=== PATIENT | male | born 1960 | race African-American/Black ===

== ENCOUNTER 2016-07-10 05:23 | Inpatient (IN) | payer OTHER ==
[2016-07-09 09:52] VITALS: Ht 182.9 cm; Wt 160.0 kg
[~2016-07-10] VITALS: Ht 182.9 cm; Wt 160.0 kg
[2016-07-10] VITALS (15 sets, daily range): BP systolic 119–176; BP diastolic 61–87; PULSE 76–100; RESP 10–20
[2016-07-10] MEDS ORDERED: SURGIFOAM POWDER 1 GM KIT ONE ×2 (06:47→10:34)
[2016-07-10] MEDS ORDERED: BUPIVACAINE 0.25% (MPF) 30 ML INJ ONE (06:47)
[2016-07-10] MEDS ORDERED: GELATIN SIZE 100 SPONGE ONE (06:47)
[2016-07-10] MEDS ORDERED: BUPIVACAINE 0.25%/EPI (SDV) 30 ML INJ ONE (06:47)
[2016-07-10] MEDS ORDERED: THROMBIN 5000 UNIT VIAL ONE (06:48)
[2016-07-10] MEDS ORDERED: HEPARIN 1000 UNITS/ML 10 ML INJ ONE (06:48)
[2016-07-10] MEDS ORDERED: CA CHLORIDE 10% 10 ML SYRINGE ONE (06:49)
--- NOTE | 2016-07-10 06:53 | HPN ---
Date/Time of Note Date/Time of Note DATE: 07/10/16 TIME: 06:52 Interval H&P Admission Note Pt. seen H&P reviewed: No system changes TD LORENZ MD Jul 10, 2016 06:52
[2016-07-10] MEDS ORDERED: HYDROmorphONE 1 MG/ML SYG IV PRN (07:00)
[2016-07-10] MEDS: CEFAZOLIN 1 GM/50 ML (PMX) 50 ML IVPB SCH ×3 (07:00→23:17)
[2016-07-10] MEDS ORDERED: DIPHENHYDRAMINE 50 MG INJ IV PRN ×2 (07:00→08:30)
[2016-07-10] MEDS ORDERED: BISACODYL 10 MG SUPP PR PRN (07:00)
[2016-07-10] MEDS ORDERED: LACTATED RINGER'S 1,000 ML IV* SCH (07:00)
[2016-07-10] MEDS ORDERED: CYCLOBENZAPRINE 10 MG TAB PO PRN (07:00)
[2016-07-10] MEDS ORDERED: GLYCOPYRROLATE 1 MG INJ ONE (07:00)
[2016-07-10] MEDS ORDERED: CEFAZOLIN 2 GM/50 ML (PMX) 50 ML IVPB ONE (07:00)
[2016-07-10] MEDS ORDERED: CEFAZOLIN 1 GM INJ ONE ×2 (07:00→07:07)
[2016-07-10] MEDS ORDERED: CEPASTAT LOZENGE MT PRN (07:00)
[2016-07-10] MEDS ORDERED: ALBUMIN HUMAN 5% 250 ML INJ ONE (07:00)
[2016-07-10] MEDS ORDERED: AL HYDROX/MG HYDROX/SIMETH 30 ML CUP PO PRN (07:00)
[2016-07-10] MEDS ORDERED: HYDROCODONE/APAP (10/325) TAB PO PRN (07:00)
[2016-07-10] MEDS ORDERED: ACETAMINOPHEN 325 MG TAB PO PRN (07:00)
[2016-07-10] MEDS ORDERED: DIPHENHYDRAMINE 25 MG CAP PO PRN (07:00)
[2016-07-10] MEDS ORDERED: ONDANSETRON 4 MG INJ IV PRN ×2 (07:00→08:30)
[2016-07-10] MEDS ORDERED: NALOXONE (0.4 MG/ML) INJ IV PRN (07:00)
[2016-07-10] MEDS ORDERED: NEOSTIGMINE 3 MG/3 ML SYRINGE ONE (07:03)
[2016-07-10] MEDS ORDERED: PROPOFOL 20 ML ONE (07:03)
[2016-07-10] MEDS ORDERED: ROCURONIUM 50 MG INJ ONE (07:03)
[2016-07-10] MEDS ORDERED: SUCCINYLCHOLINE CHLORIDE 100 MG/5 ML SYG IV ONE (07:03)
[2016-07-10] MEDS ORDERED: LIDOCAINE 100 MG SYRINGE ONE (07:04)
[2016-07-10] MEDS ORDERED: ONDANSETRON 4 MG INJ ONE (07:04)
[2016-07-10] MEDS ORDERED: MIDAZOLAM 1 MG/ML 2 ML INJ ONE (07:04)
[2016-07-10] MEDS ORDERED: DEXAMETHASONE 4 MG/ML 1 ML INJ ONE (07:04)
[2016-07-10] MEDS ORDERED: THROMBIN 5000 UNIT VIAL TOP ONE ×3 (07:49→11:06)
[2016-07-10] MEDS ORDERED: BUPIVACAINE 0.25%/EPI (SDV) 30 ML INJ INJ ONE (07:49)
[2016-07-10] MEDS ORDERED: CEFAZOLIN 1 GM INJ ZFS ONE (07:49)
[2016-07-10] MEDS ORDERED: LABETALOL HCL 20MG INJ ONE (08:17)
[2016-07-10] MEDS ORDERED: EPHEDrine SULFATE 50 MG/5 ML SYG IV PRN (08:30)
[2016-07-10] MEDS ORDERED: FENTAnyl 50 MCG/ML VIAL IV PRN ×3 (08:30)
[2016-07-10] MEDS ORDERED: TRIMETHOBENZAMIDE 100 MG/ML VIAL IM PRN (08:30)
[2016-07-10] MEDS ORDERED: LABETALOL HCL 20MG INJ IV PRN (08:30)
[2016-07-10] MEDS ORDERED: hydrALAzine 20 MG INJ IV PRN (08:30)
[2016-07-10] MEDS ORDERED: MIDAZOLAM 1 MG/ML 2 ML INJ IV PRN (08:30)
[2016-07-10] MEDS ORDERED: MEPERIDINE 25 MG INJ IV PRN (08:30)
[2016-07-10] MEDS ORDERED: HYDROmorphONE (0.2 MG/ML) 10ML SYG IV PRN ×3 (08:30)
[2016-07-10] MEDS: DOCUSATE SODIUM 100 MG CAP PO SCH ×2 (09:00→20:50)
--- NOTE | 2016-07-10 09:23 | RADRPT ---
PROCEDURE: XR Lumbar Spine one view. CLINICAL INDICATION: Low back pain. Intraoperative. TECHNIQUE: Prone portable cross-table lateral. COMPARISON: No prior studies are available for comparison. FINDINGS: Posterior needle markers are present overlying the lumbar spine superiorly and inferiorly. IMPRESSION: 1. Intraoperative imaging as described above. RPTAT: QQ .Riki Camargo MD, MD Date Time Electronically viewed and signed by .Riki Camargo MD, on 07/10/2016 09:23 .R/
--- NOTE | 2016-07-10 09:24 | RADRPT ---
PROCEDURE: XR Lumbar Spine one view. CLINICAL INDICATION: Low back pain. Intraoperative. TECHNIQUE: Prone portable cross-table lateral. COMPARISON: Prior study done earlier the same day. FINDINGS: For the purposes of this report, the last apparent true disc level is considered to be L5-S1. Based on this, the posterior surgical instruments are present overlying the lower L2, mid L3, and L4, and mid L5 levels. IMPRESSION: 1. Intraoperative imaging as described above. RPTAT: QQ .Riki Camargo MD, Date Time Electronically viewed and signed by .Riki Camargo MD, on 07/10/2016 09:24 .R/
[2016-07-10] MEDS ORDERED: FENTAnyl 50 MCG/ML VIAL ONE (11:22)
[2016-07-10] MEDS ORDERED: BUPIVACAINE 0.25% (MPF) 10 ML 10 ML VIAL ONE (11:22)
[2016-07-10] MEDS: HYDROmorphONE 0.2 MG/ML PCA IV SCH (13:16)
--- NOTE | 2016-07-10 13:25 | OPR ---
DATE OF OPERATION: 07/10/2016 PREOPERATIVE DIAGNOSES: 1. L2-3, L3-4, L4-5, L5-S1 stenosis. 2. Right paracentral protrusion at L4-5 adding to the stenosis. 3. Morbid obesity (BMI 48). POSTOPERATIVE DIAGNOSES: 1. L2-3, L3-4, L4-5, L5-S1 stenosis. 2. Right paracentral protrusion at L4-5 adding to the stenosis. 3. Morbid obesity (BMI 48). OPERATION PERFORMED: 1. L2-3, L3-4, L4-5, and L5-S1 central decompressive laminectomy with decompression of L2, L3, L4, L5, and S1 nerve roots bilaterally. 2. Right L4-5 microdiskectomy, for further stenosis alleviation. 3. Use of operative microscope. 4. Lateral localizing film x2. 5. Intraoperative neuromonitoring (4 hours 15 minutes). 6. Epidural injection via catheter. 7. Application Prevena wound bilingual sales assistant. SURGEON: Renaldo Hernandez MD SUPERVISOR AGRICULTURAL EDUCATION: Jahaira Sykes PA-C NEED FOR GOLF CART ATTENDANT: During this spinal surgical procedure, my bilingual sales assistant was used to retract and protect the spinal nerves and dural sac. My bilingual sales assistant also employed the suction catheters to evacuate blood from the surgical field to improve visualization of the neural structures. The bilingual sales assistant was medically necessary to facilitate the completion of the surgery in a safe and expeditious manner. State of [place] regulations, as well as hospital bylaws, preclude the use of non-licensed health care personnel, such as operating room technicians, to perform these functions. FINDINGS: Neuromonitoring at the start of the case revealed right L3 down 50%, right L4 down 50%, right L5 down 50%, right S1 down 30%, left L2 down 40%, left L4 down 20%, left L5 down 30%. At the end of the case returned to normal. The patient had morbid obesity. Standard instrumentation was too short for this patient and instead instruments had to be used. At least an additional 1.5 hours were spent due to the patient's altered anatomy due to the obesity. ESTIMATED BLOOD LOSS: 600 mL with 300 returned via Cell[employer]. DRAINS: x2, Hemovac, Prevena. SPECIMENS: L2, L3, L4, L5 spinous processes with right L4-5 disk was sent to pathology. COMPLICATIONS OF PROCEDURES: None. ANESTHESIOLOGIST: Dr. Aiken TYPE OF ANESTHESIA: General. INDICATIONS FOR PROCEDURE: This is a 55-year-old gentleman with lumbosacral radiculopathy in the setting of stenosis. He had failed nonoperative measures; therefore, I recommended proceeding with the above-mentioned surgery. Preoperatively, we discussed the risks, benefits, and alternatives. He understood and wished to proceed. DESCRIPTION OF PROCEDURE IN DETAIL: The patient was identified in the preoperative holding area, given Ancef antibiotic, taken to the operating room where he was successfully placed under general anesthesia by Dr. Aiken. Neuromonitoring leads were placed, sequential compressive devices were applied. Martinez catheter was introduced. Neuromonitoring was utilized during the procedure for 4 hours and 15 minutes to include SSEP, MEP, and EMG. This was performed by [employer]. Start time was 8 a.m., closure time was 12:15 p.m. The patient was placed in the prone position over a Boris frame. All bony prominences were well padded. The back was then prepped and draped in the usual sterile fashion. Spinal needles were placed, and lateral localizing films obtained to confirm the correct levels. I next injected subcutaneous tissue with 0.25% Marcaine and epinephrine. Incision was then made from L2 to the sacrum. Incision was taken down to the dorsal fascia. Approximately 5 inches of adipose tissue was identified between the skin and the dorsal fascia. I then incised the dorsal fascia and subperiosteally dissected the L2, L3, L4 , L5 lamina. I then placed instruments around the spinous process and took a repeat lateral film to confirm the correct levels. The patient has morbid obesity due to his weight, standard retractors and instruments could not be used. Due to the altered field, an additional 1.5 of surgery time was spent. Once the retractors were in place, I performed a central decompressive laminectomy at L2-3, L3-4, L4-5, and L5-S1. I removed ligamentum flavum. I decompressed the lateral recess and visualized and decompressed the L2, L3, L4, L5, and S1 nerve roots bilaterally. At this point, all nerve signals returned to normal, but there was indentation of the dura on the right side at the L4-5 level. Partially due to adhesions, but I was concerned that there was a herniation here, and therefore microscope was brought in, annulotomy was made, and a right-sided limited microdiskectomy was performed at the L4-5 level to further decompress the stenosis. Once this was done, I irrigated the wound. Hemostasis was achieved with bipolar cautery, Surgifoam, and bone wax. A Valsalva maneuver was performed and there was no leak of CSF, and all nerve signals remained normal. Microscope was taken off the field. Epidural catheter was passed, and I injected 100 mcg of fentanyl mixed with 2 mL of Marcaine 0.25% preservative-free, and the catheter was removed. Anesthesiologist jaskaran peripheral blood which was spun using the Audigence device and took the platelet-poor plasma and mixed this with thrombin and injected this over the dura for hemostatic purposes. Periodically, the anesthesiologist lifted the patient's head to take pressure off the eyes. Next, retractors were removed, and I closed the deep fascia with #1 Stratafix suture. I closed subcutaneous tissue with a 2-0 Vicryl stitch. A 4-0 Monocryl closure was performed. 2-0 nylons were used to suture the drains and 1 drain was placed in the subfascial area superficial to the deep fascia. Due to the patient's excess adipose tissue, I elected to place the Prevena system to prevent further drainage. Once this was all done, The patient was awakened from anesthesia and taken to recovery in stable condition. Lap, sponge, and instrument counts were correct x2. There were no apparent complications during the surgery. The patient will be admitted to the orthopedic [facility] for routine postoperative care to include pain control, neurovascular checks, antibiotics, and physical therapy. Dictated By: RENALDO FARRELL/KISHAN Conf#: [id number] DID#: [id number] ISHA
[2016-07-10] MEDS: D5W-0.45 NACL + KCL 20 MEQ 1,000 ML IV SCH ×2 (15:55→16:53)
--- NOTE | 2016-07-10 17:54 | CONS ---
Date/Time of Note Date/Time of Note DATE: 07/10/16 TIME: 17:44 Assessment/Plan Assessment/Plan Problems: (1) Other specified aftercare following surgery Status: Acute Comment: Aftercare post op, pain management and physical therapy per Dr. Hernandez and his team. (2) Obesity Status: Chronic Qualifiers: (3) Hypertension Status: Chronic Comment: Will add [id number] mg daily. monitor and further adjust based on needs. Qualifiers: Qualified Code: I10 - Essential hypertension Consultation Date/Type/Reason Admit Date/Time Jul 10, 2016 at 05:23 Date of Consultation: Jul 10, 2016 Type of Consultation: Internal Medicine Reason for Consultation Medicine follow up Referring Provider: TD HERNANDEZ MD Hx of Present Illness Patient with back injury April 2015 after bending over and reaching to bead picker an item from the floor. Upon standing heard a pop with pain in low back radiating down leg and the inability to walk. Constitutional: no complaints Eyes: no complaints ENT: no complaints Respiratory: no complaints Cardiovascular: no complaints Gastrointestinal: no complaints Genitourinary: no complaints Musculoskeletal: back pain Neurologic: no complaints Endocrine: no complaints Lymphatic: no complaints Psychological: no complaints Immunologic: no complaints Past Medical History Medical History: hypertension (obesity), other Past Surgical History Past Surgical Hx: no surgical history Family History Significant Family History: cancer, other (obesity) Social History Alcohol Use: occasionally Smoking Status: Never smoker Drug Use: none Other Social History 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 Exam/Review of Systems Vital Signs Vitals Vital Signs Date Time Temp Pulse Resp B/P Pulse Ox O2 Delivery O2 Flow Rate FiO2 07/10/16 13:26 78 15 146/84 97 Nasal Cannula 2.0 07/10/16 12:51 97.5 Exam Constitutional: alert, obese, oriented, well developed Psych: nl mood/affect, no complaints Head: normocephalic Eyes: EOMI, PERRL, nl conjunctiva, nl lids, nl sclera ENMT: mucosa pink and moist Neck: supple Respiratory: clear to auscultation, normal air movement Cardiovascular: nl pulses, regular rate and rhythm Gastrointestinal: soft Musculoskeletal: nl extremities to inspection Extremities: normal pulses Neurological: other (moves all extremeties) Skin: nl turgor Results Labs and vitals reviewed Medications Medications Current Medications Potassium Chloride/Dextrose/ Sod Cl (D5-1/2ns + KCl 20 Meq) 1,000 ml @ 100 mls/ hr Q10H IV Last administered on 07/10/16 15:55; Admin Dose 100 MLS/HR; Start 07/10/16 at 06:53 Acetaminophen/ Hydrocodone Bitart ([place] (10/325)) 1 tab Q4H PRN PO PAIN LEVEL 1-5; Start 07/10/16 at 07:00 Acetaminophen/ Hydrocodone Bitart ([place] (10/325)) 2 tab Q4H PRN PO PAIN LEVEL 6-10; Start 07/10/16 at 07:00 Hydromorphone HCl 0.2 mg 0.2 mg Q1H PRN IV BREAKTHROUGH PAIN; Start 07/10/16 at 07:00 Cefazolin Sodium (Ancef 1 Gm/50 ml (Pmx)) 50 ml @ 100 mls/hr Q8H IVPB Last administered on 07/10/16 15:52; Admin Dose 100 MLS/HR; Start 07/10/16 at 07:00 ; Stop 07/10/16 at 23:29 Ondansetron HCl (Zofran Inj) 4 mg Q6H PRN IV NAUSEA AND/OR VOMITING; Start at 07:00 Bisacodyl (Dulcolax Supp) 10 mg DAILY PRN [place] CONSTIPATION; Start 07/10/16 at 07 :00 Docusate Sodium (Colace) 200 mg BID PO ; Start 07/10/16 at 09:00 Pantoprazole (Protonix Iv) 40 mg DAILY@06 IV ; Start 07/11/16 at 06:00 Al Hydrox/Mg Hydrox/Simethicone (Mag-Al Plus) 15 ml Q6H PRN PO CONSTIPATION/ DYSPEPSIA; Start 07/10/16 at 07:00 Acetaminophen (Tylenol Tab) 650 mg Q4H PRN PO BURGOS OR TEMP GREATER THAN 101.3F; Start 07/10/16 at 07:00 Cyclobenzaprine HCl (Flexeril) 10 mg TID PRN PO MUSCLE SPASMS; Start 07/10/16 at 07:00 Phenol (Cepastat Lozenge) 1 lozenge PRN PRN [place] SORE THROAT; Start 07/10/16 at 07:00 Diphenhydramine HCl (Benadryl) 25 mg Q6H PRN PO ITCHING; Start 07/10/16 at 07: 00 Diphenhydramine HCl (Benadryl) 25 mg Q6H PRN IV ITCHING Last administered on 14:00; Admin Dose 25 MG; Start 07/10/16 at 07:00 Naloxone HCl (Narcan) 0.2 mg Q2M PRN IV RR 8 BREATHS/MIN OR LESS; Start at 07:00 Hydromorphone HCl (Dilaudid CRIMINOLOGY PROFESSOR) CRIMINOLOGY PROFESSOR to be started in PACU Q4PCA IV Last administered on 07/10/16 13:16; Admin Dose 6 MG; Start 07/10/16 at 07:00 Miscellaneous Information 1. Hold CRIMINOLOGY PROFESSOR at 1,000... CRIMINOLOGY PROFESSOR IV ; Start 07/10/16 at 07: 00 SIOBHAN PAYAN MD Jul 10, 2016 17:54
[2016-07-11 01:12] VITALS: BP 114/58; RESP 18
[2016-07-11] MEDS: D5W-0.45 NACL + KCL 20 MEQ 1,000 ML IV SCH ×3 (03:37→22:53)
[2016-07-11 05:28] LABS: BASOPHILS % 0.1 % (0.0-2.0); EOSINOPHILS % 0.2 % (0.0-7.0); HEMATOCRIT 30.3 % (42.0-52.0); HEMOGLOBIN 9.9 g/dl (14.0-18.0); LYMPHOCYTES # 1.7 10^3/ul (0.8-2.9); LYMPHOCYTES % 19.4 % (15.0-51.0); MEAN CORPUSCULAR HEMOGLOBIN 30.6 pg (29.0-33.0); MEAN CORPUSCULAR HGB CONC 32.8 g/dl (32.0-37.0); MEAN CORPUSCULAR VOLUME 93.4 fl (82.0-101.0); MEAN PLATELET VOLUME 8.1 fl (7.4-10.4); MONOCYTE # 1.2 10^3/ul (0.3-0.9); MONOCYTES % 14.3 % (0.0-11.0); NEUTROPHIL # 5.7 10^3/ul (1.6-7.5); PLATELET COUNT 161 10^3/UL (140-440); RED BLOOD COUNT 3.25 10^6/ul (4.70-6.10); RED CELL DISTRIBUTION WIDTH 14.1 % (11.5-14.5); UNCORRECTED WBC 8.7 10^3/ul (4.8-10.8); WHITE BLOOD COUNT 8.7 10^3/ul (4.8-10.8)
[2016-07-11 05:32] LABS: POTASSIUM 4.3 mmol/L (3.5-5.1)
[2016-07-11 05:34] LABS: CONDITION 1
[2016-07-11 05:35] LABS: CREATININE 0.98 mg/dl (0.61-1.24)
[2016-07-11 05:36] LABS: CALCIUM 8.4 mg/dl (8.4-10.2); MAGNESIUM 2.1 mg/dl (1.7-2.5)
[2016-07-11] MEDS: PANTOPRAZOLE 40 MG INJ IV SCH (05:39)
[2016-07-11 08:00] VITALS: BP 119/58; RESP 20
[2016-07-11] MEDS: DOCUSATE SODIUM 100 MG CAP PO SCH ×2 (08:51→20:34)
[2016-07-11] MEDS: AMLODIPINE 10 MG TAB PO SCH (08:52)
--- NOTE | 2016-07-11 09:56 | PN ---
Date/Time of Note Date/Time of Note DATE: 07/11/16 TIME: 09:54 Assessment/Plan Lines/Catheters IV Catheter Type (from Nrsg): Saline Lock Martinez in Place (from Nrsg): Yes Assessment/Plan Assessment/Plan Status post lumbar decompression Patient still has significant drain output. This will remain in place. He will continue with current treatment. Pain control and physical therapy Subjective 24 Hr Interval Summary Complains of low back pain Exam/Review of Systems Vital Signs Vitals Vital Signs Date Time Temp Pulse Resp B/P Pulse Ox O2 Delivery O2 Flow Rate FiO2 07/11/16 08:00 98.3 86 20 119/58 97 07/10/16 20:00 Nasal Cannula 2.0 Intake and Output 07/10/16 07/10/16 07/11/16 15:00 23:00 07:00 Intake Total 2800 ml 600 ml 1900 ml Output Total 1120 ml 1375 ml 1450 ml Balance 1680 ml -775 ml 450 ml Exam Free Text/Dictation He is neurovascularly intact. Dressings are in place. Results Result Diagram: 07/11/16 0425 07/11/16 0425 TD LORENZ MD Jul 11, 2016 09:55
--- NOTE | 2016-07-11 12:19 | CONS ---
Date/Time of Note Date/Time of Note DATE: 07/11/16 TIME: 12:15 Assessment/Plan Assessment/Plan Chief Complaint/Hosp Course Patient with back injury April 2015 after bending over and reaching to corn picker an item from the floor. Upon standing heard a pop with pain in low back radiating down leg and the inability to walk. Problems: (1) Anemia Status: Acute (2) Other specified aftercare following surgery Status: Acute Comment: Clinically stable post op. pain controlled. working with PT. (3) Hypertension Status: Chronic Comment: Good blood pressure control Qualifiers: Hypertension type: essential hypertension Qualified Code: I10 - Essential hypertension (4) Obesity Status: Chronic Qualifiers: Obesity type: due to excess calories Consultation Date/Type/Reason Admit Date/Time Jul 10, 2016 at 05:23 Initial Consult Date 07/10/16 Type of Consultation: Internal Medicine Referring Provider: TD LORENZ MD 24 HR Interval Summary Free Text/Dictation Pain decreased. Exam/Review of Systems Vital Signs Vitals Vital Signs Date Time Temp Pulse Resp B/P Pulse Ox O2 Delivery O2 Flow Rate FiO2 07/11/16 08:00 98.3 86 20 119/58 97 07/10/16 20:00 Nasal Cannula 2.0 Intake and Output 07/10/16 07/10/16 07/11/16 15:00 23:00 07:00 Intake Total 2800 ml 600 ml 1900 ml Output Total 1120 ml 1375 ml 1450 ml Balance 1680 ml -775 ml 450 ml Exam Constitutional: alert, obese, oriented, well developed Head: normocephalic Eyes: EOMI, PERRL, nl conjunctiva Neck: supple Respiratory: clear to auscultation Cardiovascular: regular rate and rhythm Gastrointestinal: soft Musculoskeletal: nl extremities to inspection Results Labs and vitals reviewed Result Diagram: 07/11/165 07/11/16 0425 Results 24 hrs Laboratory Tests Test 07/11/16 04:25 Anion Gap 13 Basophils # 0.0 Basophils % 0.1 Blood Urea Nitrogen 12 Calcium Level 8.4 Carbon Dioxide Level 29 Chloride Level 103 Creatinine 0.98 Eosinophils # 0.0 Eosinophils % 0.2 Glucose Level 113 Hematocrit 30.3 L Hemoglobin 9.9 L Lymphocytes # 1.7 Lymphocytes % 19.4 Magnesium Level 2.1 Mean Corpuscular Hemoglobin 30.6 Mean Corpuscular Hemoglobin Concent 32.8 Mean Corpuscular Volume 93.4 Mean Platelet Volume 8.1 Monocytes # 1.2 H Monocytes % 14.3 H Neutrophils # 5.7 Neutrophils % 66.0 Nucleated Red Blood Cells # 0.0 Nucleated Red Blood Cells % 0.0 Platelet Count 161 Potassium Level 4.3 Red Blood Count 3.25 L Red Cell Distribution Width 14.1 Sodium Level 141 White Blood Count 8.7 Medications Medications Current Medications Potassium Chloride/Dextrose/ Sod Cl (D5-1/2ns + KCl 20 Meq) 1,000 ml @ 100 mls/ hr Q10H IV Last administered on 07/11/16 03:37; Admin Dose 100 MLS/HR; Start 07/10/16 at 06:53 Acetaminophen/ Hydrocodone Bitart ([place] (10/325)) 1 tab Q4H PRN PO PAIN LEVEL 1-5; Start 07/10/16 at 07:00 Acetaminophen/ Hydrocodone Bitart ([place] (10/325)) 2 tab Q4H PRN PO PAIN LEVEL 6-10; Start 07/10/16 at 07:00 Hydromorphone HCl (Dilaudid) 0.2 mg Q1H PRN IV BREAKTHROUGH PAIN; Start at 07:00 Ondansetron HCl (Zofran Inj) 4 mg Q6H PRN IV NAUSEA AND/OR VOMITING; Start at 07:00 Bisacodyl (Dulcolax Supp) 10 mg DAILY PRN [place] CONSTIPATION; Start 07/10/16 at 07 :00 Docusate Sodium (Colace) 200 mg BID PO Last administered on 07/11/16 08:51; Admin Dose 200 MG; Start 07/10/16 at 09:00 Pantoprazole (Protonix Iv) 40 mg DAILY@06 IV Last administered on 07/11/16 05: 39; Admin Dose 40 MG; Start 07/11/16 at 06:00 Al Hydrox/Mg Hydrox/Simethicone (Mag-Al Plus) 15 ml Q6H PRN PO CONSTIPATION/ DYSPEPSIA; Start 07/10/16 at 07:00 Acetaminophen (Tylenol Tab) 650 mg Q4H PRN PO BURGOS OR TEMP GREATER THAN 101.3F; Start 07/10/16 at 07:00 Cyclobenzaprine HCl (Flexeril) 10 mg TID PRN PO MUSCLE SPASMS; Start 07/10/16 at 07:00 Phenol (Cepastat Lozenge) 1 lozenge PRN PRN [place] SORE THROAT; Start 07/10/16 at 07:00 Diphenhydramine HCl (Benadryl) 25 mg Q6H PRN PO ITCHING; Start 07/10/16 at 07: 00 Diphenhydramine HCl (Benadryl) 25 mg Q6H PRN IV ITCHING Last administered on 14:00; Admin Dose 25 MG; Start 07/10/16 at 07:00 Naloxone HCl (Narcan) 0.2 mg Q2M PRN IV RR 8 BREATHS/MIN OR LESS; Start at 07:00 Hydromorphone HCl (Dilaudid MEDICAL AUTHORIZATION SPECIALIST) MEDICAL AUTHORIZATION SPECIALIST to be started in PACU Q4PCA IV Last administered on 07/10/16 13:16; Admin Dose 6 MG; Start 07/10/16 at 07:00 Miscellaneous Information 1. Hold MEDICAL AUTHORIZATION SPECIALIST at 1,000... MEDICAL AUTHORIZATION SPECIALIST IV ; Start 07/10/16 at 07: 00 Amlodipine Besylate (Norvasc) 10 mg DAILY PO ; Start 07/11/16 at 09:00 SIOBHAN PAYAN MD Jul 11, 2016 12:19
[2016-07-11] MEDS: HYDROmorphONE 0.2 MG/ML PCA IV SCH (13:23)
[2016-07-11 19:00] VITALS: BP 108/52; RESP 18
[2016-07-12 05:19] LABS: CREATININE 0.94 mg/dl (0.61-1.24)
[2016-07-12 05:20] LABS: CALCIUM 8.3 mg/dl (8.4-10.2); MAGNESIUM 2.1 mg/dl (1.7-2.5)
[2016-07-12] MEDS: PANTOPRAZOLE 40 MG INJ IV SCH (05:37)
[2016-07-12 05:38] LABS: BASOPHILS % 0.5 % (0.0-2.0); EOSINOPHILS # 0.1 10^3/ul (0.0-0.5); EOSINOPHILS % 1.3 % (0.0-7.0); HEMATOCRIT 29.7 % (42.0-52.0); HEMOGLOBIN 9.8 g/dl (14.0-18.0); LYMPHOCYTES # 2.3 10^3/ul (0.8-2.9); LYMPHOCYTES % 27.6 % (15.0-51.0); MEAN CORPUSCULAR HEMOGLOBIN 30.9 pg (29.0-33.0); MEAN CORPUSCULAR VOLUME 93.6 fl (82.0-101.0); MEAN PLATELET VOLUME 8.1 fl (7.4-10.4); MONOCYTE # 1.2 10^3/ul (0.3-0.9); MONOCYTES % 14.1 % (0.0-11.0); NEUTROPHIL # 4.7 10^3/ul (1.6-7.5); NEUTROPHILS % 56.5 % (39.0-77.0); PLATELET COUNT 153 10^3/UL (140-440); RED BLOOD COUNT 3.17 10^6/ul (4.70-6.10); RED CELL DISTRIBUTION WIDTH 13.8 % (11.5-14.5); UNCORRECTED WBC 8.4 10^3/ul (4.8-10.8); WHITE BLOOD COUNT 8.4 10^3/ul (4.8-10.8)
[2016-07-12 06:13] LABS: CONDITION 1
--- NOTE | 2016-07-12 08:01 | PN ---
Date/Time of Note Date/Time of Note DATE: 07/12/16 TIME: 07:59 Assessment/Plan Lines/Catheters IV Catheter Type (from Nrsg): Peripheral IV Martinez in Place (from Nrsg): Yes Assessment/Plan Assessment/Plan doing well continue PT, ambulate pain control Subjective 24 Hr Interval Summary patient is comfortable, notes improvement in legs Exam/Review of Systems Vital Signs Vitals Vital Signs Date Time Temp Pulse Resp B/P Pulse Ox O2 Delivery O2 Flow Rate FiO2 07/12/16 05:00 18 07/11/16 19:00 102.2 86 108/52 93 07/10/16 20:00 Nasal Cannula 2.0 Intake and Output 07/11/16 07/11/16 07/12/16 15:00 23:00 07:00 Intake Total 1660 ml 1060 ml Output Total 1300 ml 1325 ml Balance 360 ml -265 ml Exam Free Text/Dictation NVID drain intact, prevena intact drain output 125cc/last shift - will recheck tomorrow Results Result Diagram: 07/12/16 0426 07/12/16 0426 ANA M KEEN PA-C Jul 12, 2016 08:01
[2016-07-12 08:28] VITALS: BP 101/50; RESP 19
[2016-07-12] MEDS: D5W-0.45 NACL + KCL 20 MEQ 1,000 ML IV SCH ×2 (08:53→18:53)
[2016-07-12] MEDS: DOCUSATE SODIUM 100 MG CAP PO SCH ×2 (09:07→20:35)
[2016-07-12] MEDS: HYDROCODONE/APAP (10/325) TAB PO PRN ×3 (09:07→18:03)
[2016-07-12] MEDS: AMLODIPINE 10 MG TAB PO SCH (12:38)
[2016-07-12 12:42] VITALS: BP 100/54; PULSE 75; RESP 20
--- NOTE | 2016-07-12 13:48 | PN ---
Date/Time of Note Date/Time of Note DATE: 07/12/16 TIME: 13:46 Assessment/Plan VTE Prophylaxis VTE Prophylaxis Intervention: SCD's Lines/Catheters IV Catheter Type (from Nrs): Peripheral IV Urinary Cath still in place: Yes Reason Cath still needed: urinary retention Assessment/Plan Problems: (1) Hypertension Status: Chronic Comment: He is on his amlodipine treatment his blood pressure is well controlled. He has pressures may rise as he gets moving postoperatively. Qualifiers: Hypertension type: essential hypertension Qualified Code: I10 - Essential hypertension (2) Other specified aftercare following surgery Status: Acute Comment: He is doing relatively well after his back surgery. He still has a drain in and as such she needs to stay in the hospital. Once the drain is discontinued and physical therapy clears and we should be able to go to home therapy. (3) Obesity Status: Chronic Comment: Noted and counseled Qualifiers: Obesity type: due to excess calories Subjective 24 Hr Interval Summary Constitutional: no complaints Respiratory: no complaints (Denies fevers chills or sweats no shortness of breath or wheezing) Cardiovascular: no complaints (No chest pain no palpitations) Gastrointestinal: no complaints (He had a brief episode of nausea yesterday now fully resolved) Musculoskeletal: back pain (Pain at the surgical incision site) Neurologic: other (Brief episode of numbness of the left lateral thigh while being in the sitting position now resolved) Exam/Review of Systems Vital Signs Vitals Vital Signs Date Time Temp Pulse Resp B/P Pulse Ox O2 Delivery O2 Flow Rate FiO2 07/12/16 12:42 98.3 75 20 100/54 97 Room Air 07/10/16 20:00 2.0 Intake and Output 07/11/16 07/11/16 07/12/16 15:00 23:00 07:00 Intake Total 1660 ml 1060 ml Output Total 1300 ml 1325 ml Balance 360 ml -265 ml Exam Constitutional: alert, oriented Respiratory: clear to auscultation, normal air movement Cardiovascular: nl pulses, regular rate and rhythm Gastrointestinal: nl liver, spleen, non-tender, soft Results Result Diagram: 07/12/166 07/12/16425 Results 24 hrs Laboratory Tests Test 07/12/16 04:26 Anion Gap 11 Basophils # 0.0 Basophils % 0.5 Blood Urea Nitrogen 12 Calcium Level 8.3 L Carbon Dioxide Level 30 Chloride Level 103 Creatinine 0.94 Eosinophils # 0.1 Eosinophils % 1.3 Glucose Level 103 Hematocrit 29.7 L Hemoglobin 9.8 L Lymphocytes # 2.3 Lymphocytes % 27.6 Magnesium Level 2.1 Mean Corpuscular Hemoglobin 30.9 Mean Corpuscular Hemoglobin Concent 33.0 Mean Corpuscular Volume 93.6 Mean Platelet Volume 8.1 Monocytes # 1.2 H Monocytes % 14.1 H Neutrophils # 4.7 Neutrophils % 56.5 Nucleated Red Blood Cells # 0.0 Nucleated Red Blood Cells % 0.0 Platelet Count 153 Potassium Level 4.0 Red Blood Count 3.17 L Red Cell Distribution Width 13.8 Sodium Level 140 White Blood Count 8.4 Medications Medications Current Medications Potassium Chloride/Dextrose/ Sod Cl (D5-1/2ns + KCl 20 Meq) 1,000 ml @ 100 mls/ hr Q10H IV Last administered on 07/11/16 03:37; Admin Dose 100 MLS/HR; Start 07/10/16 at 06:53 Acetaminophen/ Hydrocodone Bitart ([place] (10/325)) 1 tab Q4H PRN PO PAIN LEVEL 1-5; Start 07/10/16 at 07:00 Acetaminophen/ Hydrocodone Bitart ([place] (10/325)) 2 tab Q4H PRN PO PAIN LEVEL 6-10 Last administered on 07/12/16 12:39; Admin Dose 2 TAB; Start 07/10/16 at 07:00 Hydromorphone HCl (Dilaudid) 0.2 mg Q1H PRN IV BREAKTHROUGH PAIN; Start at 07:00 Ondansetron HCl (Zofran Inj) 4 mg Q6H PRN IV NAUSEA AND/OR VOMITING; Start at 07:00 Bisacodyl (Dulcolax Supp) 10 mg DAILY PRN [place] CONSTIPATION; Start 07/10/16 at 07 :00 Docusate Sodium (Colace) 200 mg BID PO Last administered on 07/12/16 09:07; Admin Dose 200 MG; Start 07/10/16 at 09:00 Pantoprazole (Protonix Iv) 40 mg DAILY@06 IV Last administered on 07/12/16 05: 37; Admin Dose 40 MG; Start 07/11/16 at 06:00 Al Hydrox/Mg Hydrox/Simethicone (Mag-Al Plus) 15 ml Q6H PRN PO CONSTIPATION/ DYSPEPSIA Last administered on 07/12/16 05:39; Admin Dose 15 ML; Start at 07:00 Acetaminophen (Tylenol Tab) 650 mg Q4H PRN PO BURGOS OR TEMP GREATER THAN 101.3F Last administered on 07/11/16 20:34; Admin Dose 650 MG; Start 07/10/16 at 07:00 Cyclobenzaprine HCl (Flexeril) 10 mg TID PRN PO MUSCLE SPASMS; Start 07/10/16 at 07:00 Phenol (Cepastat Lozenge) 1 lozenge PRN PRN [place] SORE THROAT; Start 07/10/16 at 07:00 Diphenhydramine HCl (Benadryl) 25 mg Q6H PRN PO ITCHING; Start 07/10/16 at 07: 00 Diphenhydramine HCl (Benadryl) 25 mg Q6H PRN IV ITCHING Last administered on 14:00; Admin Dose 25 MG; Start 07/10/16 at 07:00 Naloxone HCl (Narcan) 0.2 mg Q2M PRN IV RR 8 BREATHS/MIN OR LESS; Start at 07:00 Hydromorphone HCl (Dilaudid SCARFING MACHINE OPERATOR) SCARFING MACHINE OPERATOR to be started in PACU Q4PCA IV Last administered on 07/11/16 13:23; Admin Dose 6 MG; Start 07/10/16 at 07:00 Miscellaneous Information 1. Hold SCARFING MACHINE OPERATOR at 1,000... SCARFING MACHINE OPERATOR IV ; Start 07/10/16 at 07: 00 Amlodipine Besylate (Norvasc) 10 mg DAILY PO ; Start 07/11/16 at 09:00 JULIANA SORENSEN MD Jul 12, 2016 13:48
[2016-07-12 19:00] VITALS: BP 115/68; RESP 20
[2016-07-13 00:30] VITALS: BP 122/63; PULSE 70; RESP 18
[2016-07-13] MEDS: HYDROCODONE/APAP (10/325) TAB PO PRN ×2 (04:44→13:44)
[2016-07-13] MEDS: D5W-0.45 NACL + KCL 20 MEQ 1,000 ML IV SCH (04:53)
[2016-07-13 05:00] VITALS: BP 114/59; PULSE 81; RESP 18
[2016-07-13 05:54] LABS: ADD SCAN DIFF NO
[2016-07-13 06:03] LABS: BASOPHILS % 0.3 % (0.0-2.0); EOSINOPHILS # 0.1 10^3/ul (0.0-0.5); EOSINOPHILS % 1.6 % (0.0-7.0); HEMATOCRIT 29.7 % (42.0-52.0); HEMOGLOBIN 9.7 g/dl (14.0-18.0); LYMPHOCYTES % 27.2 % (15.0-51.0); MEAN CORPUSCULAR HEMOGLOBIN 30.7 pg (29.0-33.0); MEAN CORPUSCULAR HGB CONC 32.7 g/dl (32.0-37.0); MEAN PLATELET VOLUME 10.2 fl (7.4-10.4); MONOCYTE # 0.9 10^3/ul (0.3-0.9); NEUTROPHIL # 4.4 10^3/ul (1.6-7.5); NEUTROPHILS % 58.5 % (39.0-77.0); PLATELET COUNT 171 10^3/UL (140-415); RED BLOOD COUNT 3.16 10^6/ul (4.70-6.10); RED CELL DISTRIBUTION WIDTH 12.5 % (11.5-14.5); WHITE BLOOD COUNT 7.5 10^3/ul (4.8-10.8)
[2016-07-13 06:08] LABS: POTASSIUM 3.5 mmol/L (3.5-5.1)
[2016-07-13 06:11] LABS: CREATININE 0.87 mg/dl (0.61-1.24)
[2016-07-13 06:12] LABS: CALCIUM 8.5 mg/dl (8.4-10.2); MAGNESIUM 2.1 mg/dl (1.7-2.5)
[2016-07-13] MEDS: PANTOPRAZOLE 40 MG INJ IV SCH (06:31)
[2016-07-13 08:18] VITALS: BP 117/57; RESP 20
[2016-07-13] MEDS: DOCUSATE SODIUM 100 MG CAP PO SCH (08:48)
[2016-07-13] MEDS: AMLODIPINE 10 MG TAB PO SCH (09:00)
--- NOTE | 2016-07-13 12:02 | DS ---
DATE OF ADMISSION: 07/10/2016 DATE OF DISCHARGE: 07/13/2016 ADMITTING DIAGNOSIS: Spinal stenosis. DISCHARGE DIAGNOSIS: Spinal stenosis. PROCEDURE: The patient was taken to the operating room on 07/10/2016 and underwent lumbar decompres viola. HOSPITAL COURSE: The patient was admitted to the orthopedic terry after undergoing the above procedu re. His postoperative course was uncomplicated. By postoperative day 3, he was deemed stable for d ischarge, with to a [facility] system. Followup was arranged. Dictated By: TD FARRELL/NTS Conf#: [id number] DID#: [id number]
== END 2016-07-13 10:30 | disposition home or self-care (01) | DRG 519 ==
LOC: REC 05:23 → EDSTATUS 07:00 → MS1 14:37
PROVIDERS: ADMIT Specialist; ATTEND Specialist
PROC: 0SB20ZZ Excision of Lumbar Vertebral Disc, Open Approach (ICD-10-PCS; 2016-07-10)
PROC: 01NB0ZZ Release Lumbar Nerve, Open Approach (ICD-10-PCS; principal; 2016-07-10 07:00)
DX: M48.07 Spinal stenosis, lumbosacral region (principal); M54.17 Radiculopathy, lumbosacral region; Z68.42 Body mass index [BMI] 45.0-49.9, adult; I10 Essential (primary) hypertension; E66.01 Morbid (severe) obesity due to excess calories; M51.26 Other intervertebral disc displacement, lumbar region; M48.06 Spinal stenosis, lumbar region
CPT/HCPCS: 72020; 80048; 83735; 85025; 86850; 86900; 86901; 86920; 86999; 87086; 97116; 97163; 97530; C9113; J0330; J0690; J1100; J1170; J1200; J1644; J2001; J2250; J2405; J2710; J3010; J3480; P9045